=== PATIENT | male | born 1990 | race Caucasian/White ===

== ENCOUNTER 2021-04-18 10:31 | Emergency (ER) | payer OTHER ==
[~2021-04-18] VITALS: Ht 182.9 cm; Wt 93.0 kg
[2021-04-18 12:04] LABS: BASOPHIL 0 % (0-2); EOSINOPHIL 0.3 % (0-5); HCT 45.5 % (42.0-52.0); HGB 14.6 g/dl (13.2-18.0); LYMPHOCYTE 30.5 % (15-48); MCHC 32.1 g/dL (32.0-36.0); MCV 84.3 fL (78.0-100.0); MONOCYTE 7.8 % (0-12); MPV 11.6 fL (6.0-9.5); NEUTROPHIL 60.6 % (41-80); NRBC 0; PLT 150 K/uL (150-400); RDW 14.1 % (11.5-14.0); WBC 3.8 K/uL (4.0-10.5)
[2021-04-18 12:28] LABS: ALBUMIN 3.5 g/dL (3.4-5.0); BILIRUBIN - TOTAL 0.5 mg/dL (0.2-1.0); BUN/CREAT RATIO (CALC) 12.1 RATIO; CREATININE 1.16 mg/dL (0.67-1.17); GLOBULIN (CALCULATION) 3.5 g/dL; POTASSIUM 4.5 mmol/L (3.5-5.1)
== END 2021-04-18 14:55 | disposition home or self-care (01) ==
LOC: FER 10:31
PROVIDERS: Emergency Medicine
DX: U07.1 COVID-19 (principal); E66.9 Obesity, unspecified; Z23 Encounter for immunization; Z87.891 Personal history of nicotine dependence
CPT/HCPCS: 36415; 71045; 80053; 85025; 85379; 93005; M0243; Q0244